=== PATIENT | male | born 1975 | race Caucasian/White ===

== ENCOUNTER 2017-03-27 10:50 | Day surgery (SDC) | payer BC ==
[~2017-03-27 10:50] MED LIST: Lactated Ringers 1,000 ML IV SCH
[2017-03-27] MEDS ORDERED: fentaNYL 100 MCG/2 ML SDV ONE (12:46)
[2017-03-27] MEDS ORDERED: Propofol 200 MG/20 ML SDV ONE ×2 (12:46→12:52)
--- NOTE | 2017-03-27 19:49 | OR ---
EGD REPORT SURGERY DATE: 03/27/2017. REFERRING PROVIDER: Luis Valentine MD in [place]. PRE-OPERATIVE DIAGNOSES: 1. Acute abdominal pain this past weekend. Suspected gastritis. 2. History of gastroesophageal reflux disease, currently on omeprazole 40 mg daily on most days. The patient denies any NSAID use, but does chew tobacco. He did have four beers on Friday and one on Friday. POST-OPERATIVE DIAGNOSIS: Normal upper endoscopy. Antral biopsies were taken for pathology and Helicobacter pylori. PROCEDURE: EGD with cold biopsy x1 site. SURGEON: Jonathan Gunderson M.D. ANESTHESIA: Monitored anesthesia care. Javier is a 41-year-old male, who was brought to the endoscope suite after discussion of risks and benefits (including but not limited to reaction to medication, bleeding, infection, aspiration, perforation). Informed consent was obtained for monitored anesthesia care and esophagogastroduodenoscopy along with possible biopsy and/or dilatation. Pre-procedure exam including oral cavity was unremarkable. IV, oxygen, and monitors were placed. Patient was placed in the left lateral position and sedation was administered. A bite block was placed gently and scope lightly lubricated and passed through the bite block and over the tongue. Hypopharynx and vocal cords were visualized and unremarkable. Scope was passed through the cricopharynx and into the esophagus. The scope was then passed through the distal esophagus and the GE junction was visualized and photographed. The GE junction was unremarkable. Vocal cords were visualized. The scope was advanced into the stomach and gastric taveras was suctioned. Pylorus was identified and intubated and then the scope was advanced to the third portion of the duodenum. The second and third portions of the duodenum were unremarkable. The duodenal bulb was visualized and unremarkable. The scope was brought back into the stomach. The pylorus and the antrum were unremarkable. Cold biopsy x2 bites were taken from the antrum to check for H. pylori and sent for path. The scope was then retroflexed to visualize the angularis, fundus, body, and cardia. These were unremarkable. The stomach was desufflated of air and then the scope was slowly withdrawn, and the esophagus was closely visualized during withdrawal all the way into the posterior pharynx. In the upper esophagus there was an area of heterotopic type mucosa. Cold biopsy x2 bites was taken of this area and sent for path. The patient tolerated the procedure well and went to recovery in stable condition. The patient was monitored until at baseline status. Findings and discharge instructions were reviewed and the patient was discharged in good condition. COMPLICATIONS: None. TOTAL TIME: Six minutes. ESTIMATED BLOOD LOSS: Less than 1 mL. RECOMMENDATIONS/FOLLOW-UP: Recommend the patient continue on his Nexium. If symptoms are not resolving after 4-8 weeks of PPI, consider other potential etiology of his abdominal pain. Will await path results, and send out letter to the patient. I do not see evidence to explain his recent acute abdominal pain. Symptoms have resolved completely. Differential could include gallbladder pathology or possibility of acute self-limited pancreatitis episode. May consider a right upper quadrant ultrasound. We will also await pathology for the final path results from our cold biopsies taken today. Given the patient's known reflux, we will have him continue on omeprazole 20 mg to 40 mg daily. I would like to kindly thank Dr. Valentine for this referral. DMB: 03/27/2017 13:10:28 MODL: 03/27/2017 19:42:12 /[id number]
== END 2017-03-27 14:05 | disposition home or self-care (01) ==
LOC: VM.SDS 10:50
PROVIDERS: ATTEND Family Medicine
DX: K21.9 Gastro-esophageal reflux disease without esophagitis (principal); J45.909 Unspecified asthma, uncomplicated; F41.9 Anxiety disorder, unspecified; E78.5 Hyperlipidemia, unspecified; E66.9 Obesity, unspecified; Z91.048 Other nonmedicinal substance allergy status; Z79.899 Other long term (current) drug therapy
CPT/HCPCS: 43239; J2704; J3010; J7120